=== PATIENT | male | born 1965 | race American Indian/Alaskan Native ===

== ENCOUNTER 2016-11-26 17:58 | Inpatient (IN) | payer OTHER ==
[2016-11-26 19:14] LABS: Bilirubin,Urine NEG (Negative); Blood,Urine NEG (Negative); Ketones,Urine TR mg/dL (Negative); Leukocyte Esterase,Urine NEG (Negative); Mucus,Urine 3+ /HPF; Nitrite,Urine NEG (Negative); WBC,Urine < 1.0 /HPF (0.0-6.0)
[2016-11-26 19:47] LABS: Alanine Aminotransferase 27 units/L (7-56); Albumin 4.1 g/dL (3.9-5); Albumin/Globulin Ratio 1.1 %; Alkaline Phosphatase 63 units/L (35-129); Anion Gap 18 mmol/L; BUN/Creatinine Ratio 14.44; Bilirubin,Total 0.6 mg/dL (0.1-1.2); Blood Urea Nitrogen 13 mg/dL (9-20); Calcium 9.1 mg/dL (8.4-10.2); Carbon Dioxide 24 mmol/L (22-30); Chloride 98.3 mmol/L (98-107); Glucose 115 mg/dL (75-100); Potassium 4.2 mmol/L (3.6-5.0); Sodium 136 mmol/L (137-145); Total Protein 7.9 g/dL (6.3-8.2)
[2016-11-26 19:49] LABS: Basophils % (Auto) 0.1 % (0.0-1.8); Eosinophils % (Auto) 0.2 % (0.0-4.3); Mean Corpuscular HGB Conc 33 % (32-34); Mean Corpuscular Hemoglobin 32 pg (28-32); Mean Corpuscular Volume 97 fl (84-94); Platelet Count 255 K/mm3 (140-440); Red Blood Count 4.94 M/mm3 (3.65-5.03); Red Cell Distribution Width 13.3 % (13.2-15.2); White Blood Count 7.8 K/mm3 (4.5-11.0)
[2016-11-26 20:02] LABS: Lipase 23 units/L (13-60)
[2016-11-27] MEDS ORDERED: ZOFRAN IV ONE (01:05)
[2016-11-27] MEDS ORDERED: NACL 0.9% 1000 ML 1,000 ML ONE (01:14)
[2016-11-27] MEDS ORDERED: NACL 0.9% 1000 ML 1,000 ML IV ONE (01:22)
[2016-11-27] MEDS ORDERED: MORPHINE ONE ×3 (02:40→12:16)
[2016-11-27] MEDS ORDERED: MORPHINE IV ONE ×4 (02:53→09:01)
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
--- NOTE | 2016-11-27 08:38 | Cat Scan Report ---
FINAL REPORT PROCEDURE: CT ABDOMEN PELVIS W CON TECHNIQUE: Computerized axial tomography of the abdomen and pelvis was performed after the IV injection of iodinated nonionic contrast. HISTORY: abdominal pain, constipation COMPARISON: No prior studies are available for comparison. FINDINGS: Visualized lower thorax: Minimal atelectasis lower lung zones posteriorly. Liver: Mildly enlarged liver with diffuse fatty infiltration. Tiny ill-defined areas low attenuation lower medial edge of medial segment left lobe of liver sub centimeter in size may reflect focal fatty areas or tiny cysts images 54-56 Spleen: Normal size and attenuation. Gallbladder and biliary system: Normal. Pancreas: Moderate diffuse pancreatic atrophy. Adrenals: Normal. Kidneys: Delayed images demonstrate contrast throughout the collecting systems without evidence of obstructive uropathy. GI tract: Oral contrast in distended stomach and in portions of small bowel to the left mid abdomen. Dilated small bowel loops with air-fluid levels with minimal wall thickening. Small bowel loops measuring in the 4-4.5 centimeter range suggesting moderate grade mid small bowel obstruction with distended loops extending from the mid abdomen to the central upper pelvis. Small bowel related pneumatosis is not entirely excludable sagittal 158. Mild stool density. Scattered diverticulosis. Suspect metallic suture line left mid lateral flank from prior large bowel anastomosis. Normal caliber appendix. Lymph nodes and mesentery: Scattered stranding in the posterior mesentery mid to lower abdomen. Pre portal mild lymphadenopathy measuring 1 x 2 centimeters Vasculature: Mild atherosclerosis. IVC filter infrarenal vein. 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 Bladder: Normal. Reproductive organs: Mildly heterogeneous prostate gland. Peritoneum: Small amount of free fluid left upper quadrant. Musculoskeletal structures: Slight sclerotic appearance of the bones. Multilevel moderate to severe disc bulging L3 through S1 with nitrogen disc phenomenon at L3-4. Other: Small inguinal herniations fat without bowel involvement. IMPRESSION: Moderate grade mid small bowel obstruction suspected without evidence of free air at this time Other details above Followup is advised.
[2016-11-27] MEDS ORDERED: PROTONIX IV ONE (09:01)
[2016-11-27] MEDS ORDERED: LIDOCAINE VISCOUS 2% ONE (09:04)
[2016-11-27] MEDS ORDERED: LIDOCAINE VISCOUS 2% PO ONE (09:30)
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
[2016-11-27] MEDS ORDERED: TYLENOL PO PRN (11:03)
[2016-11-27] MEDS ORDERED: MILK OF MAGNESIA PO PRN (11:03)
[2016-11-27] MEDS ORDERED: DULCOLAX PR PRN (11:03)
[2016-11-27] MEDS ORDERED: ZOFRAN IV PRN (11:03)
[2016-11-27] MEDS: MORPHINE IV PRN ×2 (12:23→18:01)
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
[2016-11-27] MEDS: LOVENOX SUB-Q SCH (13:47)
--- NOTE | 2016-11-27 15:43 | Admit Criteria Form ---
Admission Criteria Documentation: ABDOMINAL PAIN Clinical Indications for Admission to Inpatient Care (Place 'X' for any and all applicable criteria): Admission is indicated for ANY ONE of the following(1)(2)(3)(4)(5): [X ]I. Inpatient admission required rather than observation care (Also use Abdominal Pain: Observation Care, as appropriate) because of ANY ONE of the following: [ ]a) Severe pain requiring acute inpatient management [ ]b) Identification of etiology/finding that requires inpatient care (eg, aortic dissection, free air) [ ]c) Absent bowel sounds with complete ileus(6) [ ]d) Suspected toxic megacolon [ ]e) Severe electrolyte abnormalities requiring inpatient care [ ]f) High fever or infection requiring inpatient admission as indicated by ANY ONE of following(7)(8): [ ] i) Appropriate outpatient or observational care antimicrobial treatment unavailable, not effective, or not feasible [ ] ii) Documented bacteremia [ ] iii) Temperature > 104.9 degrees F (oral) [ ] iv) T >103.1 F (oral) or < 96.8 F(rectal) that does not respond to all emergency treatment measures [X ]g) Signs of intestinal obstruction [B] [ ]h) Hemodynamic instability [ ]i) IV fluid to replace significant ongoing losses (greater than 3 L/m2 per day) (12)(13) [ ]j) Percutaneous or open drainage (eg, abscess, biliary tract ) procedures [ ]k) Parenteral nutrition regimen that must be implemented on inpatient basis [ ]l) Other condition,treatment or monitoring requiring inpatient admission. [ ]II. Peritoneal signs present [ ]III. Surgery needed that cannot be performed on an ambulatory basis. [ ]IV. Evaluation requires patient to not eat or drink for extended period ( eg, more than 24 hours). [ ]V. Contraindications and/or Inappropriate clinical situations for Observational Care in patients with abdominal pain, when ANY ONE of the following is required: [ ]a) Thorough evaluation is required to prevent catastrophic events due to delays in diagnosing (e.g.Mesenteric ischemia) 1,3 [ ]b) Patient with severe pathology or with chronic symptoms unlikely to improve in the ED stay (3) [ ]. General contraindications and/or Inappropriate clinical situations for Observational Care in patients with abdominal pain, when ANY ONE of the following is required: [ ]a) Prediction of prolongation of LOS based on ANY ONE of the following may be considered as a contraindication for observational care 2, 3, 4, 5, 6, 7, 8, 9, 10, 11 [ ]i) Age > 65 yrs. [ ]ii) Patient arriving by ambulance [ ]iii) Patient with high acuity [ ]iv) Patient requiring vital sign monitoring [ ]v) Patient on IV medication [ ]b) Systolic blood pressures 180mmHg 3,12 [ ]c) Patient with altered mental status including delirium and other alteration of consciousness, (3) [ ]d) Patient whose discharge disposition will be to a [facility]ci home or rehabilitation home should not be managed in Emergency Department Observation Unit. CMS rule requires 3 days hospital stay before such placement.3,13 [ ]e) Patient with failure to thrive due to broad array of etiologies 3,16,17 [ ]f) Inability to ambulate 3,14 Extended stay beyond goal length of stay may be needed for(2)(3): [ ]a) Persistent abdominal pain with suspected intra-abdominal process [ ]b) Diagnosed condition requiring continued stay (e.g., pancreatitis, complicated diverticulitis) [ ]c) Surgery (e.g., colectomy) The original [email or web address] content created by [employer] has been revised. The portions of the content which have been revised are identified through the use of italic text or in bold, and [facility] has neither reviewed nor approved the modified material.All other unmodified content is copyright [email or web address]. Please see references footnoted in the original [email or web address] edition 2016 Admission Criteria Met: Yes
[2016-11-27] MEDS: D5NS 1,000 ML IV SCH (18:01)
[2016-11-28] MEDS: D5NS 1,000 ML IV SCH (06:39)
[2016-11-28 06:42] LABS: Hematocrit 46.2 % (35.5-45.6); Hemoglobin 15.4 gm/dl (11.8-15.2); Mean Corpuscular HGB Conc 33 % (32-34); Mean Corpuscular Hemoglobin 32 pg (28-32); Mean Corpuscular Volume 97 fl (84-94); Platelet Count 241 K/mm3 (140-440); Red Blood Count 4.75 M/mm3 (3.65-5.03); Red Cell Distribution Width 13.3 % (13.2-15.2); White Blood Count 6.1 K/mm3 (4.5-11.0)
[2016-11-28 07:02] LABS: Alanine Aminotransferase 17 units/L (7-56); Albumin 3.6 g/dL (3.9-5); Alkaline Phosphatase 52 units/L (35-129); Anion Gap 17 mmol/L; BUN/Creatinine Ratio 15.55; Bilirubin,Total 0.6 mg/dL (0.1-1.2); Blood Urea Nitrogen 14 mg/dL (9-20); Calcium 8.7 mg/dL (8.4-10.2); Carbon Dioxide 26 mmol/L (22-30); Chloride 100.9 mmol/L (98-107); Glucose 115 mg/dL (75-100); Potassium 4.2 mmol/L (3.6-5.0); Sodium 140 mmol/L (137-145); Total Protein 7.1 g/dL (6.3-8.2)
[2016-11-28 08:31] LABS: Basophils % (Manual) 0 % (0.0-1.8); Blastocytes % (Manual) 0 %; Diff Status Complete; Eosinophils % (Manual) 0 % (0.0-4.3); RBC Morphology Normal
[2016-11-28] MEDS: LOVENOX SUB-Q SCH (10:42)
--- NOTE | 2016-11-28 14:01 | Event Note ---
Date: 11/28/16 HD 1 s/p admission with NG, fair amount out NG, abd soft, patient had BM, will order gastrograffin small bowel series in am, continue NG and IV fluids for now.
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
[2016-11-29] MEDS: D5NS 1,000 ML IV SCH ×2 (00:38→12:41)
--- NOTE | 2016-11-29 08:32 | Event Note ---
Date: 11/29/16 small bowel series today (with gastrograffin), if normal transit time, less than 4 hours, can d/c NG and adv diet and discharge home, we shall see.
[2016-11-29] MEDS: LOVENOX SUB-Q SCH (12:41)
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
--- NOTE | 2016-11-29 14:55 | Fluoroscopy Report ---
SMALL BOWEL SERIES History: Partial small bowel obstruction. Findings: Airport Attendant film of the abdomen demonstrates multiple moderately dilated loops of small bowel in the upper abdomen. Gastrografin was administered through the nasogastric tube. Although there are multiple dilated loops of bowel in the upper abdomen, there is prompt advancement of the oral contrast through the GI system. Transit time to the cecum was approximately 1 hour. Distal small bowel loops are normal caliber. Impression: Transit time of the oral contrast in the bowel loops is within normal limits at one hour.
--- NOTE | 2016-11-29 15:18 | Event Note ---
Date: 11/29/16 small bowel series normal, d/c NG, adv diet, stop narcotics and discharge home .
--- NOTE | 2016-11-30 09:39 | Event Note ---
Date: 11/30/16 small bowel series normal, VSS, afebrile, abd exam benign, tolerating liquids, adv to reg diet, needs discharge home. Instructed on diet. I will sign off.
[2016-11-30] MEDS: LOVENOX SUB-Q SCH (10:25)
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
[2016-11-30 16:58] VITALS: BP 127/79
== END 2016-11-30 18:40 | disposition home or self-care (01) | DRG 390 ==
LOC: ED 17:58 → 3A 11-27 11:03 → 4A 11-27 18:41 → 3A 11-28 14:30
PROVIDERS: ADMIT Internal Medicine; ATTEND Internal Medicine
DX: K56.69 Other intestinal obstruction (principal); I10 Essential (primary) hypertension; Z98.890 Other specified postprocedural states
CPT/HCPCS: 36415; 74177; 74250; 80053; 81001; 83690; 85007; 85025; 93005; 93010; 96361; 96374; 96375; 96376; C9113; J1650; J2270; J2405; J7030; J7042; Q9963; Q9967